=== PATIENT | male | born 1975 | race Caucasian/White ===

== ENCOUNTER 2019-03-28 22:25 | Inpatient (IN) ==
[2019-03-28] MEDS ORDERED: SODIUM CHLORIDE 0.65% NA SOLN 45 ML (OCEAN) PRN (22:43)
[2019-03-28] MEDS ORDERED: MAGNESIUM HYDROXIDE SUSP 30 ML UDC PO PRN (22:43)
[2019-03-28] MEDS ORDERED: ALUMINUM/MAGNESIUM SUSP 30 ML UDC PO PRN (22:43)
[2019-03-28] MEDS ORDERED: BISMUTH SUBSALICYLATE PER ML OMNICELL CHARGE PO PRN (22:43)
[2019-03-28] MEDS ORDERED: ACETAMINOPHEN 325 MG TAB PO PRN (22:43)
[2019-03-28] MEDS ORDERED: PATIENT'S ALLERGY INFO NEEDS ENTERED SCH (23:45)
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
[2019-03-29] MEDS: NAPROXEN 250 MG TAB PO SCH ×2 (09:29→20:32)
[2019-03-29] MEDS: SERTRALINE HCL 50 MG TABLET PO SCH (12:59)
[2019-03-29] MEDS: BACITRACIN OINT 15 GM TUBE EXT SCH (12:59)
[2019-03-30] MEDS: BACITRACIN OINT 15 GM TUBE EXT SCH (08:14)
[2019-03-30] MEDS: SERTRALINE HCL 50 MG TABLET PO SCH (08:14)
[2019-03-30] MEDS: NAPROXEN 250 MG TAB PO SCH ×2 (08:14→20:53)
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
[2019-03-31] MEDS: SERTRALINE HCL 50 MG TABLET PO SCH (09:05)
[2019-03-31] MEDS: BACITRACIN OINT 15 GM TUBE EXT SCH (09:05)
[2019-03-31] MEDS: NAPROXEN 250 MG TAB PO SCH ×2 (09:05→21:08)
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
[2019-04-01] MEDS: NAPROXEN 250 MG TAB PO SCH (08:14)
[2019-04-01] MEDS: BACITRACIN OINT 15 GM TUBE EXT SCH (08:14)
[2019-04-01] MEDS: SERTRALINE HCL 50 MG TABLET PO SCH (08:14)
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
== END 2019-04-01 10:05 | disposition home or self-care (01) | DRG 885 ==
LOC: 3S 03-29 04:04

== ENCOUNTER 2023-02-03 13:20 | Inpatient (IN) ==
--- NOTE | 2023-02-03 13:57 | Emergency Department Note ---
Impression & Plan Depression with suicidal ideation ADMIT ED Provider Note HPI: The patient is a 47-year-old gentleman who presents emergency department for mental health evaluation. Patient states he has a history of bipolar disorder, currently on Zoloft and lithium, states that over the past 2 months he has been having increasing thoughts of self-harm. Patient denies any particular inciting event. He states that he is currently homeless, intermittently goes to his 's house for personal needs and hygiene but states he is not usually allowed on the property. Patient states that about a month ago he was feeling suicidal and had a gun in his mouth but decided at that time not to kill himself. He states he continues to have thoughts of killing himself with a gun. He states he does not have a gun but there is one at his 's house. Patient denies any recent alcohol or drug use, on arrival here to the ED the patient is alert, he answers my questions appropriately, he is cooperative and otherwise hemodynamically stable. ROS: - Per HPI *Outpatient medications and allergy history reviewed. *Pertinent external medical records reviewed. PE: General: Alert HEENT: Normocephalic, trachea midline Eyes: Extraocular eye movement is intact, no scleral erythema Pulmonary: Clear to auscultation bilaterally, no wheezing Cardio: Regular rate and rhythm GI: Abdomen is soft to palpation : No suprapubic tenderness MSK: No evidence of trauma or malformation of the extremities, no edema Skin: No evidence of rash Neuro: Alert, no focal deficits Psychiatric: Cooperative Differential Diagnosis: Anxiety/depression, acute suicidality, homelessness, amongst other potential pathologies. Medical Decision Making: Patient presented to the emergency department stating he has had increasing depression and suicidal thoughts, states he is having thoughts of killing himself with a gun. Patient states about 1 month ago he did have a gun to his head. Patient was medically cleared here in the ED, he is alert and oriented and otherwise in no acute distress, he would like to sign himself in for inpatient psychiatric care. Patient was assessed by [facility] accepted for voluntary inpatient admission. Patient was transferred in stable condition to [facility] for further management Consultants: Case management Disposition discussion held by myself with: Patient Diagnosis: 1. Suicidal thoughts 2. Anxiety/depression 3. Homelessness Disposition: Admission to psychiatry Calvin Murray DO Emergency Medicine Past Med/Surg History Social History Smoking Status: Never smoker Preferred Language: Gu[place]ian Communication Ability: Effective Beliefs That Will Affect Care: None Feels Safe at Home: Yes Gender Identity: Male Assistive Devices: None Allergies Allergies Allergy/AdvReac Type Severity Reaction Status Date / Time No Known Allergies Allergy Unverified 03/29/19 04:49 Home Meds Previous Rx's Medication Instructions Recorded sertraline 50 mg tablet 50 mg PO QAM #30 tabs 04/01/19 Results & Data (ED) Vital Signs Vital Signs - 24 hr 02/03/23 13:22 02/03/23 13:20 Temperature 36.6 C Temperature Source Temporal Artery Scan Pulse Rate 125 H Respiratory Rate 16 18 Respiratory Effort / Characteristics Non-Labored Spontaneous Non-Labored Respiratory Depth Normal Normal Respiratory Pattern Regular Blood Pressure 151/86 H Blood Pressure Mean 107 Pulse Oximetry 97 98 Oxygen Delivery Method Room Air Room Air Sepsis Recent Fever Within 48 Hours No Sepsis New/Unexplained Change in Mental Status No Sepsis Action Taken by Nursing No Action Required Laboratory Data 02/03/23 14:06 02/03/23 14:06 Lab Results 02/03/23 02/03/23 02/03/23 Range/Units 14:06 14:06 14:06 WBC 5.78 (4.8-10.8) K/ul RBC 4.65 L (4.70-6.10) M/uL Hgb 14.9 (14.0-18.0) g/dl Hct 42.0 (42.0-52.0) % MCV 90.3 (80.0-100.0) fL MCH 32.0 (25.0-34.0) pg MCHC 35.5 (32.0-36.0) g/dL RDW Std Deviation 41.5 (36.4-46.3) fL RDW Coeff of Lu[place] 12.5 (11.5-14.5) % Plt Count 219 (130-400) K/uL MPV 9.8 (9.4-12.4) fL Immature Gran % (Auto) 0.2 % Neut % (Auto) 55.5 % Lymph % (Auto) 30.1 % [place] % (Auto) 9.5 % Eos % (Auto) 3.8 % Baso % (Auto) 0.9 % Neut # (Auto) 3.21 (1.40-6.50) K/uL Lymph # (Auto) 1.74 (1.2-3.4) K/uL [place] # (Auto) 0.55 (0.11-0.59) K/uL Eos # (Auto) 0.22 (0-0.50) K/uL Baso # (Auto) 0.05 (0-0.2) K/uL Immature Gran # (Auto) 0.01 (0.01-0.20) K/uL Sodium 139 (136-145) mmol/L Potassium 3.8 (3.5-5.1) mmol/L Chloride 105 (98-107) mmol/L Carbon Dioxide 31 (21-32) mmol/L Anion Gap 3 (3-11) BUN 9 (6-23) mg/dl Creatinine 1.04 (0.6-1.4) mg/dl Est Cr Clr Drug Dosing 111.5 ml/min Est GFR ( Amer) 97.3 ml/min Est GFR (Non-Af Amer) 83.9 ml/min BUN/Creatinine Ratio 8.7 L (10-20) Glucose 110 H (70-99(Fasting)) mg/dl Calcium 9.2 (8.5-10.1) mg/dl Total Bilirubin 0.8 (0.2-1.0) mg/dl AST 35 (13-39) U/L ALT 59 H (7-52) U/L Alkaline Phosphatase 54 (34-104) U/L Total Protein 7.3 (6.0-8.3) gm/dl Albumin 4.3 (3.4-5.0) gm/dl Globulin 3.0 (2.5-4.0) gm/dl Albumin/Globulin Ratio 1.4 (0.9-2) TSH 2.264 (0.300-4.500) uIu/ml Urine Color Urine Appearance (Clear) Urine pH (4.5-7.5) Ur Specific [place] (1.000-1.030) Urine Protein (Negative) Urine Glucose (UA) (Negative) Urine Ketones (Negative) Urine Blood (Negative) Urine Nitrite (Negative) Urine Bilirubin (Negative) Urine Urobilinogen (Negative) Ur Leukocyte Esterase (Negative) Salicylates (3.0-30) mg/dl Urine Opiates Screen (Neg) Ur Methadone, Qual (Neg) Acetaminophen (10-30) ug/ml Urine Barbiturates (Neg) Ur Phencyclidine (PCP) (Neg) U Amphetamin/Meth Scrn (Neg) MDMA (Ecstasy) Screen (Neg) U Benzodiazepines Scrn (Neg) Ur Cocaine Metabolite (Neg) U Marijuana (THC) Screen (Neg) Ethyl Alcohol mg/dL (<10.0) mg/dl SARS-CoV-2, RNA, NAAT (NEGATIVE) 02/03/23 02/03/23 02/03/23 Range/Units 14:06 14:06 14:06 WBC (4.8-10.8) K/ul RBC (4.70-6.10) M/uL Hgb (14.0-18.0) g/dl Hct (42.0-52.0) % MCV (80.0-100.0) fL MCH (25.0-34.0) pg MCHC (32.0-36.0) g/dL RDW Std Deviation (36.4-46.3) fL RDW Coeff of [place] (11.5-14.5) % Plt Count (130-400) K/uL MPV (9.4-12.4) fL Immature Gran % (Auto) % Neut % (Auto) % Lymph % (Auto) % [place] % (Auto) % Eos % (Auto) % Baso % (Auto) % Neut # (Auto) (1.40-6.50) K/uL Lymph # (Auto) (1.2-3.4) K/uL [place] # (Auto) (0.11-0.59) K/uL Eos # (Auto) (0-0.50) K/uL Baso # (Auto) (0-0.2) K/uL Immature Gran # (Auto) (0.01-0.20) K/uL Sodium (136-145) mmol/L Potassium (3.5-5.1) mmol/L Chloride (98-107) mmol/L Carbon Dioxide (21-32) mmol/L Anion Gap (3-11) BUN (6-23) mg/dl Creatinine (0.6-1.4) mg/dl Est Cr Clr Drug Dosing ml/min Est GFR ( Amer) ml/min Est GFR (Non-Af Amer) ml/min BUN/Creatinine Ratio (10-20) Glucose (70-99(Fasting)) mg/dl Calcium (8.5-10.1) mg/dl Total Bilirubin (0.2-1.0) mg/dl AST (13-39) U/L ALT (7-52) U/L Alkaline Phosphatase (34-104) U/L Total Protein (6.0-8.3) gm/dl Albumin (3.4-5.0) gm/dl Globulin (2.5-4.0) gm/dl Albumin/Globulin Ratio (0.9-2) TSH (0.300-4.500) uIu/ml Urine Color Yellow Urine Appearance Clear (Clear) Urine pH 7.5 (4.5-7.5) Ur Specific [place] 1.006 (1.000-1.030) Urine Protein Negative (Negative) Urine Glucose (UA) Negative (Negative) Urine Ketones Negative (Negative) Urine Blood Negative (Negative) Urine Nitrite Negative (Negative) Urine Bilirubin Negative (Negative) Urine Urobilinogen Negative (Negative) Ur Leukocyte Esterase Negative (Negative) Salicylates < 3.0 L (3.0-30) mg/dl Urine Opiates Screen (Neg) Ur Methadone, Qual (Neg) Acetaminophen < 3 L (10-30) ug/ml Urine Barbiturates (Neg) Ur Phencyclidine (PCP) (Neg) U Amphetamin/Meth Scrn (Neg) MDMA (Ecstasy) Screen (Neg) U Benzodiazepines Scrn (Neg) Ur Cocaine Metabolite (Neg) U Marijuana (THC) Screen (Neg) Ethyl Alcohol mg/dL < 10.0 (<10.0) mg/dl SARS-CoV-2, RNA, NAAT (NEGATIVE) 02/03/23 02/03/23 Range/Units 14:06 14:16 WBC (4.8-10.8) K/ul RBC (4.70-6.10) M/uL Hgb (14.0-18.0) g/dl Hct (42.0-52.0) % MCV (80.0-100.0) fL MCH (25.0-34.0) pg MCHC (32.0-36.0) g/dL RDW Std Deviation (36.4-46.3) fL RDW Coeff of [place] (11.5-14.5) % Plt Count (130-400) K/uL MPV (9.4-12.4) fL Immature Gran % (Auto) % Neut % (Auto) % Lymph % (Auto) % [place] % (Auto) % Eos % (Auto) % Baso % (Auto) % Neut # (Auto) (1.40-6.50) K/uL Lymph # (Auto) (1.2-3.4) K/uL [place] # (Auto) (0.11-0.59) K/uL Eos # (Auto) (0-0.50) K/uL Baso # (Auto) (0-0.2) K/uL Immature Gran # (Auto) (0.01-0.20) K/uL Sodium (136-145) mmol/L Potassium (3.5-5.1) mmol/L Chloride (98-107) mmol/L Carbon Dioxide (21-32) mmol/L Anion Gap (3-11) BUN (6-23) mg/dl Creatinine (0.6-1.4) mg/dl Est Cr Clr Drug Dosing ml/min Est GFR ( Amer) ml/min Est GFR (Non-Af Amer) ml/min BUN/Creatinine Ratio (10-20) Glucose (70-99(Fasting)) mg/dl Calcium (8.5-10.1) mg/dl Total Bilirubin (0.2-1.0) mg/dl AST (13-39) U/L ALT (7-52) U/L Alkaline Phosphatase (34-104) U/L Total Protein (6.0-8.3) gm/dl Albumin (3.4-5.0) gm/dl Globulin (2.5-4.0) gm/dl Albumin/Globulin Ratio (0.9-2) TSH (0.300-4.500) uIu/ml Urine Color Urine Appearance (Clear) Urine pH (4.5-7.5) Ur Specific [place] (1.000-1.030) Urine Protein (Negative) Urine Glucose (UA) (Negative) Urine Ketones (Negative) Urine Blood (Negative) Urine Nitrite (Negative) Urine Bilirubin (Negative) Urine Urobilinogen (Negative) Ur Leukocyte Esterase (Negative) Salicylates (3.0-30) mg/dl Urine Opiates Screen Neg (Neg) Ur Methadone, Qual Neg (Neg) Acetaminophen (10-30) ug/ml Urine Barbiturates Neg (Neg) Ur Phencyclidine (PCP) Neg (Neg) U Amphetamin/Meth Scrn Neg (Neg) MDMA (Ecstasy) Screen Neg (Neg) U Benzodiazepines Scrn Neg (Neg) Ur Cocaine Metabolite Neg (Neg) U Marijuana (THC) Screen Neg (Neg) Ethyl Alcohol mg/dL (<10.0) mg/dl SARS-CoV-2, RNA, NAAT NEGATIVE (NEGATIVE) Discharge Plan Visit Data Chief Complaint: Mental Health Evaluation Stated Complaint: SUICIDAL ED Provider: Calvin Murray Discharge Problem: Depression with suicidal ideation Patient Disposition: Admitted As Inpatient Forms Stand Alone Forms: [facility], Suicide Prevention Resources Prescriptions Prescriptions: No Action sertraline 50 mg Tablet 50 mg PO QAM Qty: 30 0RF Referrals Referrals: Jesus Felix DO [Primary Care Provider] -
[2023-02-03 14:38] LABS: Basophils # (auto) 0.05 K/uL (0-0.2); Basophils % (auto) 0.9 %; Eosinophils # (auto) 0.22 K/uL (0-0.50); Eosinophils % (auto) 3.8 %; Hemoglobin 14.9 g/dl (14.0-18.0); Immature Granulocytes # (auto) 0.01 K/uL (0.01-0.20); Immature Granulocytes % (auto) 0.2 %; Lymphocytes # (auto) 1.74 K/uL (1.2-3.4); Lymphocytes % (auto) 30.1 %; Mean Corpuscular Hgb Conc 35.5 g/dL (32.0-36.0); Mean Corpuscular Volume 90.3 fL (80.0-100.0); Mean Platelet Volume 9.8 fL (9.4-12.4); Monocytes # (auto) 0.55 K/uL (0.11-0.59); Monocytes % (auto) 9.5 %; Neutrophils # (auto) 3.21 K/uL (1.40-6.50); Neutrophils % (auto) 55.5 %; Platelet Count 219 K/uL (130-400); RDW Coefficient of Variation 12.5 % (11.5-14.5); RDW Standard Deviation 41.5 fL (36.4-46.3); Red Blood Count 4.65 M/uL (4.70-6.10); White Blood Count 5.78 K/ul (4.8-10.8)
[2023-02-03 14:54] LABS: Albumin Globulin Ratio 1.4 (0.9-2); Albumin Level 4.3 gm/dl (3.4-5.0); BUN Creatinine Ratio 8.7 (10-20); Bilirubin,Total 0.8 mg/dl (0.2-1.0); Calcium 9.2 mg/dl (8.5-10.1); Creatinine Clr Calc Pharmacy 111.5 ml/min; Est GFR (African American) 97.3 ml/min; Est GFR (Non-African American) 83.9 ml/min; Potassium 3.8 mmol/L (3.5-5.1); Total Protein 7.3 gm/dl (6.0-8.3)
[2023-02-03 15:01] LABS: Acetaminophen < 3 ug/ml (10-30); Salicylate < 3.0 mg/dl (3.0-30)
[2023-02-03 15:07] LABS: Appearance Urine Clear (Clear); Bilirubin Urine Negative (Negative); Blood Urine Negative (Negative); Color Urine Yellow; Glucose Urine UA Negative (Negative); Ketones Urine Negative (Negative); Leukocyte Esterase Urine Negative (Negative); Nitrite Urine Negative (Negative); Protein Urine Negative (Negative); Specific Gravity Urine 1.006 (1.000-1.030); Urobilinogen Urine Negative (Negative); pH Urine 7.5 (4.5-7.5)
[2023-02-03 15:52] LABS: Amphetamines+Metham, Urine Neg (Neg); Barbiturates, Urine Neg (Neg); Benzodiazepine, Urine Neg (Neg); Cocaine, Urine Neg (Neg); MDMA (Ecstacy), Urine Neg (Neg); Methadone, Urine Neg (Neg); Opiate, Urine Neg (Neg); Phencyclidine, Urine Neg (Neg)
[2023-02-03] MEDS ORDERED: MAGNESIUM HYDROXIDE SUSP 30 ML UDC PO PRN (17:09)
[2023-02-03] MEDS ORDERED: hydrOXYzine HCl 25 MG TAB PO PRN ×2 (17:09)
[2023-02-03] MEDS ORDERED: BISMUTH SUBSALICYLATE LIQD 236 ML PO PRN (17:09)
[2023-02-03] MEDS ORDERED: ALUMINUM/MAGNESIUM SUSP 30 ML UDC PO PRN (17:09)
[2023-02-03] MEDS ORDERED: SODIUM CHLORIDE 0.65% NA SOLN 45 ML (OCEAN) PRN (17:09)
[2023-02-03] MEDS ORDERED: ACETAMINOPHEN 325 MG TAB PO PRN (17:09)
[2023-02-03] MEDS: LITHIUM CARBONATE 300 MG TAB PO SCH (20:37)
[2023-02-03] MEDS: QUEtiapine FUMARATE 300 MG TABLET PO SCH (20:38)
[2023-02-04] MEDS: LITHIUM CARBONATE 300 MG TAB PO SCH ×2 (08:41→21:08)
--- NOTE | 2023-02-04 10:54 | History & Physical ---
Date of Service February 04, 2023 Impression / Recommendations Corbin Vasquez is a 47 year old man with a history of BPAD, one prior suicide attempt who was admitted for worsening depression with SI with various plans in setting of financial strain and homelessness. Diagnostically consistent with bipolar affective disorder current depressive episode versus adjustment disorder with depressed mood. He is deemed unstable and requires psychiatric hospitalization for diagnostic clarification, safety and stabilization, medication management and development of further coping skills. Discussed medication treatment options in detail. Discussed risks, benefits and alternatives. Patient would like to increase and consented to higher dose of sertraline for bipolar depression as well as continuing seroquel for mood stabilization and lithium for mood stabilization and SI. Reviewed side effects including but not limited to: GI, KHAN, sexual side effects. Reviewed side effects for [place] including but not limited to: risks of dehydration, renal, thyroid, cardiac, drug interactions (NSAIDs, ACEIs, angiotensin receptor antagonists as well as review of labs of thyroid function, kidney function, weight, electrolytes, CBC, and UA were preformed and WNL.Reviewed side effects for Seroquel including but not limited to: movement (TD, NMS), cardiac (QTc prolongation), and metabolic (stroke, insulin resistance) and necessity for fasting lipid and glucose labwork and AIMS done with score of 0. MNPR due to history of aggression, threatening statements (1) Depression with suicidal ideation: (2) Bipolar disorder with severe depression: Plan 02/04/2023: The patient was admitted to the [facility] ([facility] unit) on q15 min checks (behavioral with suicide precautions) for safety. The patient will participate in group, recreational, and milieu therapies and will be offered additional individual and family sessions as clinically appropriate. * Continue [place] 300mg BID, will get trough level prior to AM dose * Continue Seroquel 300mg HS, will get fasting lipid panel and glucose tomorrow AM * Increase sertraline to 200mg daily starting tomorrow * Attempt to get records from recent hospitalization at [facility] Strengths: supportive , willing to get treatment Needs: safety and stabilization, medication adjustment, additional coping skills, increased outpatient services, housing Suicide Risk Level Suicide Risk Level: High-Moderate (q15 min suicide checks) (severe depression with SI with plans prior to admission but feels safe in the hospital, able to safety contract and agrees to let nursing/staff know should they develop plan, intent or feel unable to remain safe.) Suicide Risk Level Comments: Risk Factors Assessment Male: Yes : Yes Do You Have Access To A Gun?: Yes (at 's apartment) Mental Health Diagnoses: Yes Substance Use Disorders: No Previous Attempt: Yes Family History of Suicide: No Previous Psychiatric Hospitalization: Yes Hopelessness: Yes Protective Factors Assessment : Yes Employed: No Stable Relationships: Yes Supportive Family: Yes Psychiatric History Identifying Data SIN SWANSON is a 47-year-old M who is currently homeless, has a history of bipolar affective disorder, and was admitted on 02/03/23 17:09 on a 201 voluntary commitment for SI with plans. Chief Complaint "I'm tired of living". History of Present Illness Sin presented to the ED reporting worsening depression with SI with various plans including shooting himself with his 's gun or jumping from a tall building. He has been depressed on and off for "years" but feels the depressed has been worse over the last month with hopelessness, helplessness, decreased energy, decreased motivation, decreased sleep, and anhedonia. Last month he placed a gun in his mouth as part of a suicide rehearsal behavior and was then hospitalized at [facility]. Notably told ED psych CM he put the gun in his mouth last week. He was discharged from [facility] psychiatric unit last week and had been living at [facility]. While at [facility] they cross-titrated him from venlafaxine to sertraline and he feels this is helping but still feels very depressed. Feels depression worsened at [facility] as he was around "child molesters" and "they expect you to work 12 hours a day, it's like slavery". Identifies financial strain and homelessness as his biggest stressors. He is but cannot return to the apartment where his lives for two more weeks due to previously threatening the landlord. He is currently prescribed psychiatric medications of seroquel 300mg HS, [place] 300mg BID, Zoloft 150mg daily and Vistaril 50mg BID prn for anxiety. Psychiatric ROS notable for history of hypomania vs kirk with periods of days of decreased sleep (~4 hours), increased energy, irritable mood last occurred a "few weeks ago" and lasted for 3 days. No current nor history of symptoms of psychosis, PTSD, OCD nor eating disorder. Past Psychiatric History Current Psychiatric Diagnosis: Bipolar Disorder Depressive episode Outpatient Services: psychiatrist and therapist in Art at [facility], porter sample case Previous Psych Admissions: multiple-most recently [facility] Jan 2023, [facility] March 2019, hx [facility] Le[facility], [facility] admissions Do You Have Access To A Gun?: Yes (at 's apartment) History of Previous Suicide Attempt: Yes (via hanging summer 2021) Past Medication Trials: he can't recall but many including venlafaxine, trazodone Past Head Trauma/Neuro History History of Concussion/Seizure: No Allergies Allergy/AdvReac Type Severity Reaction Status Date / Time No Known Allergies Allergy Verified 02/04/23 13:41 Home Medications Medication Instructions Recorded Confirmed Type lithium carbonate 300 mg capsule 300 mg BID 02/03/23 02/03/23 History quetiapine 300 mg tablet 300 mg PO DAILY 02/03/23 02/03/23 History sertraline 50 mg tablet 150 mg PO QAM 02/03/23 02/03/23 History Family History Family History of: Doesn't Know (isolated from family, denies any fam hx of by suicide) Alcohol History Hx of Alcohol Use Over the Past 12 Months: No AUDIT Total Score: 0 has been sober for >10 years Smoking Use Have You Smoked or Used Tobacco Products in the Last 30 Days: No tobacco type: smokeless tobacco Smoking Status: Never smoker Substance History Hx of Prescription Med Misuse Over the Past 12 Months: No Hx of Over the Counter Med Misuse Over the Past 12 Months: No Hx of Inhalent Misuse Over the Past 12 Months: No Hx of Organic Substance Use Over the Past 12 Months: No Hx of Illegal Substances/Street Drug Use Over Past 12 Months: No Problems as a Result of Past Substance Use: Arrested, 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 Denies heroin and IVDU. Personal History Living Arrangements: Homeless Childhood: estranged from his family Highest Grade Completed: G.E.D. 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 Required: No Beliefs That Will Affect Care: None Feels Safe at Home: Yes Gender Identity: Male Assistive Devices: Glasses Review of Systems Review of Systems: All systems reviewed & are unremarkable except as noted in HPI & below (shakiness he attributes to ongoing withdrawal from venlafaxine last month) Physical Exam Psychiatric: Orientation: alert and oriented x 3 Apperance: appropriately dressed and appropriately groomed Eye Contact: good eye contact Motor Behavior: no abnormal motor movements Speech: normal rate/rhythm/volume of speech Affect: + depressed affect and + constricted affect Mood: + depressed mood and + anxious mood Thought Process: goal directed thought process Thought Content: reality based without delusions Suicidal T houghts: denies suicidal intent; + reports suicidal thoughts and + reports suicidal plan (none for hospital, multiple for outside hospital like shooting himself ) Homicidal Thoughts: denies homicidal thoughts (but hx of making threats toward others, hx violence) Hallucinations: no auditory hallucinations and no visual hallucinations Cognition: recent memory grossly intact, remote memory grossly intact, attention grossly intact and language grossly intact Estimated Intelligence: consistent with education level Insight: + limited insight Judgment: + limited judgement Vital Signs (Past 24 Hours): Last Vital Signs Temp 37 C 02/04/23 06:42 Pulse 80 02/04/23 06:43 Resp 16 02/04/23 06:42 BP 118/80 02/04/23 06:43 Pulse Ox 97 02/03/23 17:17 O2 Del Method Room Air 02/03/23 17:17 Exam Statement: A physical exam was performed in the ED by Dr. Murray for the purposes of medical clearance. I accept that physical as correct and adequate for the purposes of the inpatient physical exam. Results & Data ([facility]) Laboratory Results Laboratory Results - last 24 hr 02/03/23 02/03/23 02/03/23 14:06 14:06 14:06 WBC 5.78 RBC 4.65 L Hgb 14.9 Hct 42.0 MCV 90.3 MCH 32.0 MCHC 35.5 RDW Std Deviation 41.5 RDW Coeff of Luís 12.5 Plt Count 219 MPV 9.8 Immature Gran % (Auto) 0.2 Neut % (Auto) 55.5 Lymph % (Auto) 30.1 [place] % (Auto) 9.5 Eos % (Auto) 3.8 Baso % (Auto) 0.9 Neut # (Auto) 3.21 Lymph # (Auto) 1.74 [place] # (Auto) 0.55 Eos # (Auto) 0.22 Baso # (Auto) 0.05 Immature Gran # (Auto) 0.01 Sodium 139 Potassium 3.8 Chloride 105 Carbon Dioxide 31 Anion Gap 3 BUN 9 Creatinine 1.04 Est Cr Clr Drug Dosing 111.5 Est GFR ( Amer) 97.3 Est GFR (Non-Af Amer) 83.9 BUN/Creatinine Ratio 8.7 L Glucose 110 H Calcium 9.2 Total Bilirubin 0.8 AST 35 ALT 59 H Alkaline Phosphatase 54 Total Protein 7.3 Albumin 4.3 Globulin 3.0 Albumin/Globulin Ratio 1.4 TSH 2.264 Urine Color Urine Appearance Urine pH Ur Specific Blanca Urine Protein Urine Glucose (UA) Urine Ketones Urine Blood Urine Nitrite Urine Bilirubin Urine Urobilinogen Ur Leukocyte Esterase Nasal Screen MRSA (PCR) Salicylates Urine Opiates Screen Ur Methadone, Qual Acetaminophen Urine Barbiturates Ur Phencyclidine (PCP) U Amphetamin/Meth Scrn MDMA (Ecstasy) Screen U Benzodiazepines Scrn Ur Cocaine Metabolite U Marijuana (THC) Screen Ethyl Alcohol mg/dL SARS-CoV-2, RNA, NAAT 02/03/23 02/03/23 02/03/23 14:06 14:06 14:06 WBC RBC Hgb Hct MCV MCH MCHC RDW Std Deviation RDW Coeff of Luís Plt Count MPV Immature Gran % (Auto) Neut % (Auto) Lymph % (Auto) [place] % (Auto) Eos % (Auto) Baso % (Auto) Neut # (Auto) Lymph # (Auto) [place] # (Auto) Eos # (Auto) Baso # (Auto) Immature Gran # (Auto) Sodium Potassium Chloride Carbon Dioxide Anion Gap BUN Creatinine Est Cr Clr Drug Dosing Est GFR ( Amer) Est GFR (Non-Af Amer) BUN/Creatinine Ratio Glucose Calcium Total Bilirubin AST ALT Alkaline Phosphatase Total Protein Albumin Globulin Albumin/Globulin Ratio TSH Urine Color Yellow Urine Appearance Clear Urine pH 7.5 Ur Specific Blanca 1.006 Urine Protein Negative Urine Glucose (UA) Negative Urine Ketones Negative Urine Blood Negative Urine Nitrite Negative Urine Bilirubin Negative Urine Urobilinogen Negative Ur Leukocyte Esterase Negative Nasal Screen MRSA (PCR) Salicylates < 3.0 L Urine Opiates Screen Ur Methadone, Qual Acetaminophen < 3 L Urine Barbiturates Ur Phencyclidine (PCP) U Amphetamin/Meth Scrn MDMA (Ecstasy) Screen U Benzodiazepines Scrn Ur Cocaine Metabolite U Marijuana (THC) Screen Ethyl Alcohol mg/dL < 10.0 SARS-CoV-2, RNA, NAAT 02/03/23 02/03/23 02/03/23 14:06 14:16 19:35 WBC RBC Hgb Hct MCV MCH MCHC RDW Std Deviation RDW Coeff of Luís Plt Count MPV Immature Gran % (Auto) Neut % (Auto) Lymph % (Auto) [place] % (Auto) Eos % (Auto) Baso % (Auto) Neut # (Auto) Lymph # (Auto) [place] # (Auto) Eos # (Auto) Baso # (Auto) Immature Gran # (Auto) Sodium Potassium Chloride Carbon Dioxide Anion Gap BUN Creatinine Est Cr Clr Drug Dosing Est GFR ( Amer) Est GFR (Non-Af Amer) BUN/Creatinine Ratio Glucose Calcium Total Bilirubin AST ALT Alkaline Phosphatase Total Protein Albumin Globulin Albumin/Globulin Ratio TSH Urine Color Urine Appearance Urine pH Ur Specific Blanca Urine Protein Urine Glucose (UA) Urine Ketones Urine Blood Urine Nitrite Urine Bilirubin Urine Urobilinogen Ur Leukocyte Esterase Nasal Screen MRSA (PCR) Negative Salicylates Urine Opiates Screen Neg Ur Methadone, Qual Neg Acetaminophen Urine Barbiturates Neg Ur Phencyclidine (PCP) Neg U Amphetamin/Meth Scrn Neg MDMA (Ecstasy) Screen Neg U Benzodiazepines Scrn Neg Ur Cocaine Metabolite Neg U Marijuana (THC) Screen Neg Ethyl Alcohol mg/dL SARS-CoV-2, RNA, NAAT NEGATIVE Current Inpatient Medications Current Inpatient Medications: Current Inpatient Medications Acetaminophen (Acetaminophen 325 Mg Tab) 650 mg PO Q4H PRN PRN Reason: Headache or Minor Fever Stop: 03/05/23 17:08 Al Hydrox/Mg Hydrox/Simethicone (Aluminum/Magnesium Susp 30 Ml Udc) 30 ml PO Q4H PRN PRN Reason: GI Upset Stop: 03/05/23 17:08 Bismuth Subsalicylate (Bismuth Subsalicylate Liqd 236 Ml) 15 ml PO PRN PRN PRN Reason: Loose Stool Stop: 03/05/23 17:08 Hydroxyzine HCl (Hydroxyzine Hcl 25 Mg Tab) 25 mg PO Q4H PRN PRN Reason: Anxiety Stop: 03/05/23 17:08 Hydroxyzine HCl (Hydroxyzine Hcl 25 Mg Tab) 50 mg PO HSZ PRN PRN Reason: Insomnia Stop: 03/05/23 17:08 [place] Carbonate ([place] Carbonate 300 Mg Tab) 300 mg PO BID JAJA Stop: 03/05/23 20:59 Last Admin: 02/04/23 08:41 Dose: 300 mg Magnesium Hydroxide (Magnesium Hydroxide Susp 30 Ml Udc) 30 ml PO DAILY PRN PRN Reason: Constipation Stop: 03/05/23 17:08 Quetiapine Fumarate (Quetiapine Fumarate 300 Mg Tablet) 300 mg PO HS JAJA Stop: 03/05/23 21:59 Last Admin: 02/03/23 20:38 Dose: 300 mg Sodium Chloride (Sodium Chloride 0.65% Na Soln 45 Ml ([place])) 1 - 2 sprays NA PRN PRN PRN Reason: Nasal Dryness/Congestion Stop: 03/05/23 17:08
[2023-02-04] MEDS ORDERED: SERTRALINE HCL 50 MG TABLET PO ONE (13:26)
[2023-02-04] MEDS: QUEtiapine FUMARATE 300 MG TABLET PO SCH (21:08)
[2023-02-05 07:49] LABS: Chol HDL Ratio 7.1 (0-5)
[2023-02-05] MEDS ORDERED: SERTRALINE HCL 100 MG TABLET PO SCH (09:00)
--- NOTE | 2023-02-05 09:21 | Discharge Summary ---
Date of Service February 05, 2023 History of Present Illness Pedro presented to the ED reporting worsening depression with SI with various plans including shooting himself with his 's gun or jumping from a tall building. He has been depressed on and off for "years" but feels the depressed has been worse over the last month with hopelessness, helplessness, decreased energy, decreased motivation, decreased sleep, and anhedonia. Last month he placed a gun in his mouth as part of a suicide rehearsal behavior and was then hospitalized at [facility]. Notably told ED psych CM he put the gun in his mouth last week. He was discharged from [facility] psychiatric unit last week and had been living at [facility], a type of anglican homeless half-way. While at [place] they cross-titrated him from venlafaxine to sertraline and he feels this is helping but still feels very depressed. Feels depression worsened at [facility] as he was around "child molesters" and "they expect you to work 12 hours a day, it's like slavery". Identifies financial strain and homelessness as his biggest stressors. He is but cannot return to the apartment where his lives for two more weeks due to previously threatening the landlord. He is currently prescribed psychiatric medications of seroquel 300mg HS, [place] 300mg BID, Zoloft 150mg daily and Vistaril 50mg BID prn for anxiety. Psychiatric ROS notable for history of hypomania vs kirk with periods of days of decreased sleep (~4 hours), increased energy, irritable mood last occurred a "few weeks ago" and lasted for 3 days. No current nor history of symptoms of psychosis, PTSD, OCD nor eating disorder. Physical Exam Vital Signs (Past 24 Hours) Last Vital Signs Temp 36.9 C 02/05/23 06:43 Pulse 76 02/05/23 06:44 Resp 16 02/05/23 06:43 BP 99/63 L 02/05/23 06:44 Pulse Ox 97 02/03/23 17:17 O2 Del Method Room Air 02/03/23 17:17 See admission H&P and DOD summary. Principal Diagnosis Adjustment disorder with depressed mood Psychiatric Data See daily stay summary. In short, safety was maintained. Pedro refused all groups except activity group preferring to spend time in his room or occupying himself with other activities like throwing a stress ball against the wall. Medication changes included increase of sertraline to 200mg daily and they tolerated this well. A support/coordination session was held with his and outpatient supervisor case loading and safety plan was completed prior to discharge. He was continued on prior to admission [place]. [place] level at discharge was 0.4 mmol/L. Recommend repeat lithium level, thyroid function and kidney function labwork at 6 months and then annually or anytime symptoms arise. Patient educated on risks of dehydration, renal, thyroid, cardiac, drug interactions (NSAIDs, ACEIs, angiotensin receptor antagonists). He was also continued on prior to admission Seroquel 300mg HS. Baseline labs of fasting glucose, fasting lipid profile, and weight were preformed and notable for elevated triglycerides, total cholesterol, and elevated glucose. He declined offers to discuss further options for treatment for this such as statin or checking HbA1c to ensure no evidence for pre-diabetes. Stated he has been working to lose weight and prefers to continue with this goal and approaching through nutrition and healthy lifestyle changes. Recommended he continue to follow-up with his psychiatric provider or establish with a PCP to discuss this further. Recommend repeat fasting glucose, HbA1c and fasting lipid profile every 12 weeks and then annually. If symptoms arise recommend checking BP, EKG, prolactin level as clinically indicated or relevant. Shortly after his admission interview Pedro's affect was noted to be much brighter with smiles and laughs. He declined all groups to process his emotions or work on coping skills instead choosing to only participate in activities groups and was laughing and appeared happy while interacting with peers and playing on the Wii. After his admission social work was able to get further collateral from his and his outpatient supervisor case loading. Per his he has not had any access to guns in recent years as she has no guns (he told multiple providers that the gun he reported placing in his mouth was his 's gun that was at her apartment) and she reported that she has never witnessed him have a gun or put one in his mouth and had no concerns related to his safety. Rather collateral was notable for a pattern of behavior of seeking inpatient psychiatric hospitalizations when he does not have housing. His noted that inconsistent with his report, he cannot ever return to her apartment because he threatened the property glass sander and she doesn't plan to move. Further collateral from his outpatient supervisor case loading was notable for his frequent inpatient psychiatric hospitalizations and that his outpatient supervisor case loading has been working with him to help him access local shelters but he has declined this support. This collateral as well as his varying and inconsistent reports related to his rehearsal behaviors with the gun are all felt to be consistent with likely malingering in order to gain access to housing resources. He is not felt to require further inpatient level of care. Today presents with bright affect, reports improvement in his mood and is ready for discharge. Future-oriented about desire to go to [place] where he contacted a local homeless/emergency half-way where he plans to stay. Requests I send his medication to pharmacy near this half-way though is not very concerned about whether or not he can get his medication after discharge. Discussed that this will be important to help with ongoing mood stabilization and improvement. Made a comment to one of the RNs right before discharge that he had "pulled one over on you all" in regard to managing to hide a pair of shorts with short strings under his pants so that they were not taken on admission. Joking and jovial as he was discharged. Day of Discharge Assessment Today the patient voices readiness for discharge. They note improvement in mood. They deny thoughts of harm to self or others. Thoughts are organized. There is no evidence of psychosis. He improved in the hospital with support and medication adjustments. They agree to take medications as prescribed and keep follow-up appointments. At the time of the discharge they are deemed to be stable and appropriate for outpatient level of care. They are not deemed to be at imminent risk of harm to self or others. They are aware of emergency and crisis services. Knows to call 911 or go to nearest emergency care center if in a crisis which cannot be handled as an outpatient. Transition of Care Transition Of Care Record: was reviewed with the patient Advance Directives Advance Directives Information Provided: Yes Advance Directives: No Mental Health Advance Directive: No Advance Directives on File: No Living Will: No Power of Delivery Nurse: No Advance Directives Reason:: Declines as Mental Health Visit. Suicide Risk Level Suicide Risk Level Comments: Acute risk is low given improvement in mood and denial of SI, lack of access to lethal means, future-oriented. Chronic risk is moderate given multiple non- modifiable risk factors: psychiatric co-morbid diagnoses, prior attempt, prior psychiatric hospitalizations, poor social support, mood disorder, homelessness but also with protective factors including: , sense of responsibility to family and social supports, outpatient care in place, adaptive problem solving. Counseled on ways to reduce acute and chronic risk including engaging with outpatient providers, using safety plan if needed, utilizing supports, taking medication, and using coping skills. Modifiable risk factors of SI and depression were addressed during hospitalization through development of new coping skills, support meeting, safety planning, and medication adjustments. Risk Factors Assessment Male: Yes : Yes Do You Have Access To A Gun?: No (verified no access) Mental Health Diagnoses: Yes Substance Use Disorders: No Previous Attempt: Yes Family History of Suicide: No Previous Psychiatric Hospitalization: Yes Hopelessness: No Protective Factors Assessment : Yes Employed: No Stable Relationships: Yes Supportive Family: Yes Discharge Data Lab Results 02/03/23 02/03/23 02/03/23 14:06 14:06 14:06 WBC 5.78 RBC 4.65 L Hgb 14.9 Hct 42.0 MCV 90.3 MCH 32.0 MCHC 35.5 RDW Std Deviation 41.5 RDW Coeff of Luís 12.5 Plt Count 219 MPV 9.8 Immature Gran % (Auto) 0.2 Neut % (Auto) 55.5 Lymph % (Auto) 30.1 Banks % (Auto) 9.5 Eos % (Auto) 3.8 Baso % (Auto) 0.9 Neut # (Auto) 3.21 Lymph # (Auto) 1.74 Banks # (Auto) 0.55 Eos # (Auto) 0.22 Baso # (Auto) 0.05 Immature Gran # (Auto) 0.01 Sodium 139 Potassium 3.8 Chloride 105 Carbon Dioxide 31 Anion Gap 3 BUN 9 Creatinine 1.04 Est Cr Clr Drug Dosing 111.5 Est GFR ( Amer) 97.3 Est GFR (Non-Af Amer) 83.9 BUN/Creatinine Ratio 8.7 L Glucose 110 H Fasting Glucose Calcium 9.2 Total Bilirubin 0.8 AST 35 ALT 59 H Alkaline Phosphatase 54 Total Protein 7.3 Albumin 4.3 Globulin 3.0 Albumin/Globulin Ratio 1.4 Triglycerides Cholesterol LDL Cholesterol, Calc VLDL Cholesterol, Calc HDL Cholesterol Cholesterol/HDL Ratio TSH 2.264 Urine Color Urine Appearance Urine pH Ur Specific [place] Urine Protein Urine Glucose (UA) Urine Ketones Urine Blood Urine Nitrite Urine Bilirubin Urine Urobilinogen Ur Leukocyte Esterase Nasal Screen MRSA (PCR) Salicylates Urine Opiates Screen Ur Methadone, Qual Acetaminophen Urine Barbiturates Ur Phencyclidine (PCP) U Amphetamin/Meth Scrn MDMA (Ecstasy) Screen U Benzodiazepines Scrn Ur Cocaine Metabolite U Marijuana (THC) Screen Ethyl Alcohol mg/dL SARS-CoV-2, RNA, NAAT 02/03/23 02/03/23 02/03/23 14:06 14:06 14:06 WBC RBC Hgb Hct MCV MCH MCHC RDW Std Deviation RDW Coeff of Luís Plt Count MPV Immature Gran % (Auto) Neut % (Auto) Lymph % (Auto) Banks % (Auto) Eos % (Auto) Baso % (Auto) Neut # (Auto) Lymph # (Auto) Banks # (Auto) Eos # (Auto) Baso # (Auto) Immature Gran # (Auto) Sodium Potassium Chloride Carbon Dioxide Anion Gap BUN Creatinine Est Cr Clr Drug Dosing Est GFR ( Amer) Est GFR (Non-Af Amer) BUN/Creatinine Ratio Glucose Fasting Glucose Calcium Total Bilirubin AST ALT Alkaline Phosphatase Total Protein Albumin Globulin Albumin/Globulin Ratio Triglycerides Cholesterol LDL Cholesterol, Calc VLDL Cholesterol, Calc HDL Cholesterol Cholesterol/HDL Ratio TSH Urine Color Yellow Urine Appearance Clear Urine pH 7.5 Ur Specific [place] 1.006 Urine Protein Negative Urine Glucose (UA) Negative Urine Ketones Negative Urine Blood Negative Urine Nitrite Negative Urine Bilirubin Negative Urine Urobilinogen Negative Ur Leukocyte Esterase Negative Nasal Screen MRSA (PCR) Salicylates < 3.0 L Urine Opiates Screen Ur Methadone, Qual Acetaminophen < 3 L Urine Barbiturates Ur Phencyclidine (PCP) U Amphetamin/Meth Scrn MDMA (Ecstasy) Screen U Benzodiazepines Scrn Ur Cocaine Metabolite U Marijuana (THC) Screen Ethyl Alcohol mg/dL < 10.0 SARS-CoV-2, RNA, NAAT 02/03/23 02/03/23 02/03/23 14:06 14:16 19:35 WBC RBC Hgb Hct MCV MCH MCHC RDW Std Deviation RDW Coeff of Luís Plt Count MPV Immature Gran % (Auto) Neut % (Auto) Lymph % (Auto) Banks % (Auto) Eos % (Auto) Baso % (Auto) Neut # (Auto) Lymph # (Auto) Banks # (Auto) Eos # (Auto) Baso # (Auto) Immature Gran # (Auto) Sodium Potassium Chloride Carbon Dioxide Anion Gap BUN Creatinine Est Cr Clr Drug Dosing Est GFR ( Amer) Est GFR (Non-Af Amer) BUN/Creatinine Ratio Glucose Fasting Glucose Calcium Total Bilirubin AST ALT Alkaline Phosphatase Total Protein Albumin Globulin Albumin/Globulin Ratio Triglycerides Cholesterol LDL Cholesterol, Calc VLDL Cholesterol, Calc HDL Cholesterol Cholesterol/HDL Ratio TSH Urine Color Urine Appearance Urine pH Ur Specific [place] Urine Protein Urine Glucose (UA) Urine Ketones Urine Blood Urine Nitrite Urine Bilirubin Urine Urobilinogen Ur Leukocyte Esterase Nasal Screen MRSA (PCR) Negative Salicylates Urine Opiates Screen Neg Ur Methadone, Qual Neg Acetaminophen Urine Barbiturates Neg Ur Phencyclidine (PCP) Neg U Amphetamin/Meth Scrn Neg MDMA (Ecstasy) Screen Neg U Benzodiazepines Scrn Neg Ur Cocaine Metabolite Neg U Marijuana (THC) Screen Neg Ethyl Alcohol mg/dL SARS-CoV-2, RNA, NAAT NEGATIVE 02/05/23 07:14 WBC RBC Hgb Hct MCV MCH MCHC RDW Std Deviation RDW Coeff of Luís Plt Count MPV Immature Gran % (Auto) Neut % (Auto) Lymph % (Auto) Banks % (Auto) Eos % (Auto) Baso % (Auto) Neut # (Auto) Lymph # (Auto) Banks # (Auto) Eos # (Auto) Baso # (Auto) Immature Gran # (Auto) Sodium Potassium Chloride Carbon Dioxide Anion Gap BUN Creatinine Est Cr Clr Drug Dosing Est GFR ( Amer) Est GFR (Non-Af Amer) BUN/Creatinine Ratio Glucose Fasting Glucose 106 H Calcium Total Bilirubin AST ALT Alkaline Phosphatase Total Protein Albumin Globulin Albumin/Globulin Ratio Triglycerides 208 H Cholesterol 264 H LDL Cholesterol, Calc 185 VLDL Cholesterol, Calc 42 H HDL Cholesterol 37 Cholesterol/HDL Ratio 7.1 H TSH Urine Color Urine Appearance Urine pH Ur Specific [place] Urine Protein Urine Glucose (UA) Urine Ketones Urine Blood Urine Nitrite Urine Bilirubin Urine Urobilinogen Ur Leukocyte Esterase Nasal Screen MRSA (PCR) Salicylates Urine Opiates Screen Ur Methadone, Qual Acetaminophen Urine Barbiturates Ur Phencyclidine (PCP) U Amphetamin/Meth Scrn MDMA (Ecstasy) Screen U Benzodiazepines Scrn Ur Cocaine Metabolite U Marijuana (THC) Screen Ethyl Alcohol mg/dL SARS-CoV-2, RNA, NAAT Hospital Course (1) Adjustment disorder with depressed mood: (2) Malingering: (3) Bipolar disorder: Mental Health & Subst Abuse Tx Psychiatrist Name of Psychiatrist: [facility] Psychiatrist's Date Of Appointment With Psychiatric Provider: 02/13/23 Time of Appointment with Psychiatrist: 2:00 PM Psychiatric Appointment Comment: [address] [place] [id number] Therapist Name of Therapist: [facility] Therapist's Date of Therapist Appointment: 02/13/23 Time of Therapist Appointment: 2:00 PM Therapy Appointment Comment: [address] [place] [address] Spout Liner Name of Spout Liner: ARISTIDES Naik Phone Number for Spout Liner: [phone] Case Management Appointment Comment: Your supervisor case loading will follow-up with you directly. Post Discharge Appointments Primary Care Physician Name Of Family Doctor/PCP: [facility] Time of [facility] with [facility] [place] [address] Provider Appointment Comment: Please call to establish primary care services if you would like. Contact Information Discharge Discharge Address: [address] [address] Discharge Plan Discharge Items Patient Disposition: Home - Self-Care Reason For Visit: BIPOLAR DISORDER DEPRESSIVE EPISODE Discharge Diagnosis: Adjustment disorder with depressed mood Activity: Resume your previous activity Non-emergency contact: Primary Care Provider, Psychiatrist and Stores Clerk Call non-emergency contact if: you have any medication questions and your symptoms worsen Follow-up/Referrals: Jesus Felix DO [Primary Care Provider] - Diet: Regular Addtl Attending Provider Instructions: SPECIAL CARE INSTRUCTIONS: 1. Follow through with your scheduled aftercare appointments. If unable to keep an appointment, please call to reschedule. 2. Take your medication only as prescribed. Medication should not be changed or stopped without the approval of your doctor. In the event of worsening symptoms or concerns about side effects, contact your doctor immediately. 3. Utilize new healthy coping skills, anger management skills, and stress management skills learned during your hospitalization. Journal feelings and process them with a support person. Identify stressors or situations that may result in relapse, deterioration or inappropriate behaviors and develop a plan to deal with those issues. 4. If your coping skills are ineffective and you are in crisis, contact your outpatient providers for direction. If unable to reach your providers, please call the [facility] CRISIS LINE AT , go to the [facility] walk-in center at [address], [address], [place], or go to the closest Emergency Room. 5. Avoid alcohol and un-prescribed drugs. 6. You have been provided with the Mental Health Advance Directives Pamphlet for your review. 7. Your condition is stable for discharge to outpatient level of care, but recovery is an ongoing process. Ifthoughts to harm yourself or others return, follow the safety plan developed during your stay. Planning for a safe return home includes securing weapons. Our treatment team recommends weaponsbe removed from the home until your outpatient provider reassesses your progress. In rare cases where the items themselvescannot be removed, guns and ammunitionshould be secured separatelyand keys stored by a reliable personoutside of the home. If you were admitted on an involuntary commitment, the police or other legal authorities may be involved in this process. AFTERCARE APPOINTMENTS: * Please call your insurance company prior to your scheduled appointment to confirm your aftercare providers are covered. Take your insurance information to your appointments. WHO TO CALL AND WHEN: Medical Emergencies: For questions or emergencies related to your hospital stay, please contact the Inpatient Behavioral Health Unit at [phone]. A medical physics researcher is on-call 23/06 for the Behavioral Health Unit for emergencies At any time you feel your situation is an emergency, you may also call 911 immediately. Pending Studies at Discharge: No Stand-Alone Forms: My [facility] Medications and DC Order Prescriptions: New sertraline 100 mg Tablet 200 mg PO QAM 30 Days Qty: 60 0RF Changed quetiapine 300 mg tablet 300 mg PO HS 30 Days Qty: 30 0RF lithium carbonate 300 mg capsule 300 mg PO BID 30 Days Qty: 60 0RF Discontinued sertraline 50 mg tablet 150 mg PO QAM Discharge Orders: Discharge Order (Routine); Ordered 02/05/23 Ordered By: Tana Dunham/Other Patient Handouts: Depression: Tips to Help Yourself Admission Data Admit Date/Time: 02/03/23 17:09 Attending Provider: Tana Moreno Admit Provider: Tana Moreno Primary Care Provider: Jesus Felix Other Interventions: Discharge Summary Assessment (RN) Last Done: 02/05/23 11:31 PSY Interdisciplinary Discharge Planning Last Done: 02/05/23 12:54 Coding Level of Care Code 86300 D/C day mgmt > 30 min Diagnoses Adjustment disorder with depressed mood F43.21 Malingering Z76.5 Bipolar disorder F31.9 Time Spent (min) 45
[2023-02-05] MEDS: LITHIUM CARBONATE 300 MG TAB PO SCH (09:42)
== END 2023-02-05 13:51 | disposition home or self-care (01) | DRG 881 ==
LOC: ED 13:20 → 3S 17:09